=== PATIENT | male | born 1945 | race Caucasian/White ===

== ENCOUNTER 2025-02-22 05:35 | Observation (INO) ==
--- NOTE | 2025-02-22 06:03 | DR.DIZZY ---
HPI <Brenda Parish - Last Filed: 02/28/25 22:12> Time seen Time Seen by Provider: 02/22/25 06:03 HPI Comment HPI Comment: He's brought in by his daughter who found him in the floor this morning. She says she's having a harder and harder time taking care of him and it was very difficult to get him off the floor. He has not had c/o much but his appetite is worsening over the past few weeks. He has dizziness intermittently per the daughter; he tells me that he feels fine and denies c/o cp, sob, abd pain, n/v/d. He has chronic swelling in his legs which is essentially unchanged. Daughter would like to discuss hospice. <Dejuan Justice - Last Filed: 02/22/25 09:13> Context Stroke Symptoms: None PMH <Brendajacob Lugo - Last Filed: 02/28/25 22:12> PMH Past Medical History: Anemia, CVA, Dementia, Diabetes, Hypertension, [place] and PUD Past Surgical History: Yes Surgical History: Angioplasty/Stents Family History Family Medical History: Diabetes Mellitus, Cancer, [place] and Hypertension Social History Do you use any recreational Drugs:: No ROS <Brenda Parish - Last Filed: 02/28/25 22:12> Review of Systems Constitutional: No Symptoms Reported Eyes: No Symptoms Reported ENTM: No Symptoms Reported Respiratoy: No Symptoms Reported Cardiovascular: No Symptoms Reported Gastrointestinal/Abdominal: No Symptoms Reported Genitourinary: No Symptoms Reported Neurological: See HPI and Weakness; negative Seizure Musculoskeletal: No Symptoms Reported Integumentary: No Symptoms Reported Hematologic/Lymphatic: No Symptoms Reported Endocrine: No Symptoms Reported Psychiatric: negative Hallucinations PE <Brenda Lugo - Last Filed: 02/28/25 22:12> Vital Signs Vitals: Vital Signs Temperature 97.6 F Pulse Rate 84 Pulse Rate 84 Pulse Rate 84 Pulse Rate 90 Pulse Rate 85 Pulse Rate 86 Pulse Rate 81 Pulse Rate 80 Pulse Rate 81 Pulse Rate 85 Pulse Rate 89 Pulse Rate 88 Pulse Rate 83 Pulse Rate 83 Pulse Rate 86 Pulse Rate 90 Pulse Rate 87 Pulse Rate 94 Respiratory Rate 19 Blood Pressure 182/89 Blood Pressure 180/88 Blood Pressure 171/85 Blood Pressure 185/85 Blood Pressure 161/71 Blood Pressure 158/73 Blood Pressure 150/70 Blood Pressure 168/83 Blood Pressure 175/87 Blood Pressure 138/71 Blood Pressure 151/72 Blood Pressure 151/72 Blood Pressure 151/72 Blood Pressure 160/84 Blood Pressure 160/84 Blood Pressure 165/79 Blood Pressure 165/79 Blood Pressure 165/79 Blood Pressure 165/79 Blood Pressure 165/79 Blood Pressure 165/79 Blood Pressure 167/85 Blood Pressure 172/90 O2 Sat by Pulse Oximetry 100 O2 Sat by Pulse Oximetry 100 O2 Sat by Pulse Oximetry 99 O2 Sat by Pulse Oximetry 85 O2 Sat by Pulse Oximetry 98 O2 Sat by Pulse Oximetry 99 O2 Sat by Pulse Oximetry 99 O2 Sat by Pulse Oximetry 100 O2 Sat by Pulse Oximetry 100 O2 Sat by Pulse Oximetry 100 O2 Sat by Pulse Oximetry 100 O2 Sat by Pulse Oximetry 100 O2 Sat by Pulse Oximetry 99 O2 Sat by Pulse Oximetry 99 O2 Sat by Pulse Oximetry 100 O2 Sat by Pulse Oximetry 100 O2 Sat by Pulse Oximetry 100 O2 Sat by Pulse Oximetry 97 General Limitations: No Limitations General Appearance: Alert and In No Apparent Distress Head Head Exam: Normal Inspection Eyes Eye exam: Normal Appearance ENT ENT Exam: Normal Exam, Normal Oropharynx and Normal External Ear Exam Neck Neck Exam: Normal Inspection and Full ROM Chest Chest Inspection: Normal Inspection Respiratory Respiratory Exam: Normal Lung Sounds Bilat Cardiovascular Cardiovascular Exam: Regular Rate and Normal Rhythm Abdominal Exam Abdominal Exam: Normal Inspection, Normal Bowel Sounds and Soft Rectal Rectal Exam: Deferred Extremeties Extremities Exam: Edema (1-2+) Back Back Exam: Normal Inspection and Full ROM Neurologic Neurological Exam: Alert and Oriented X3 Psychiatric Psychiatric Exam: Normal Affect and Normal Mood Skin Skin Exam: Warm, Dry, Intact and Normal Color <Dejuan Justice - Last Filed: 02/22/25 09:13> Vital Signs Vitals: Vital Signs Temperature 97.6 F Pulse Rate 84 Pulse Rate 84 Pulse Rate 84 Pulse Rate 90 Pulse Rate 85 Pulse Rate 86 Pulse Rate 81 Pulse Rate 80 Pulse Rate 81 Pulse Rate 85 Pulse Rate 89 Pulse Rate 88 Pulse Rate 83 Pulse Rate 83 Pulse Rate 86 Pulse Rate 90 Pulse Rate 87 Pulse Rate 94 Respiratory Rate 19 Blood Pressure 182/89 Blood Pressure 180/88 Blood Pressure 171/85 Blood Pressure 185/85 Blood Pressure 161/71 Blood Pressure 158/73 Blood Pressure 150/70 Blood Pressure 168/83 Blood Pressure 175/87 Blood Pressure 138/71 Blood Pressure 151/72 Blood Pressure 151/72 Blood Pressure 151/72 Blood Pressure 160/84 Blood Pressure 160/84 Blood Pressure 165/79 Blood Pressure 165/79 Blood Pressure 165/79 Blood Pressure 165/79 Blood Pressure 165/79 Blood Pressure 165/79 Blood Pressure 167/85 Blood Pressure 172/90 O2 Sat by Pulse Oximetry 100 O2 Sat by Pulse Oximetry 100 O2 Sat by Pulse Oximetry 99 O2 Sat by Pulse Oximetry 85 O2 Sat by Pulse Oximetry 98 O2 Sat by Pulse Oximetry 99 O2 Sat by Pulse Oximetry 99 O2 Sat by Pulse Oximetry 100 O2 Sat by Pulse Oximetry 100 O2 Sat by Pulse Oximetry 100 O2 Sat by Pulse Oximetry 100 O2 Sat by Pulse Oximetry 100 O2 Sat by Pulse Oximetry 99 O2 Sat by Pulse Oximetry 99 O2 Sat by Pulse Oximetry 100 O2 Sat by Pulse Oximetry 100 O2 Sat by Pulse Oximetry 100 O2 Sat by Pulse Oximetry 97 COURSE <Brenda Lugo - Last Filed: 02/28/25 22:12> Treatment Treatment: 80 y/o with dementia and recurrent falls comes in this morning w/same complaint; labs are benign as is cxr; ct brain is pending; daughter has reached the point where she does not think she can continue to care for him and is considering hospice; care to Dr Zaidi at 0800. ROR <Brenda Lugo - Last Filed: 02/28/25 22:12> Labs Reviewed Laboratory Results Reviewed?: Yes 02/24/25 04:54 02/24/25 04:54 Laboratory: WBC 10.6 X10^3/uL (3.6-10.0) H 02/22/25 06:07 RBC 4.15 X10^6/uL (4.7-6.0) L 02/22/25 06:07 Hgb 12.6 g/dL (13.5-18.0) L 02/22/25 06:07 Hct 37.4 % (42.0-54.0) L 02/22/25 06:07 MCV 90.0 fL (80.0-100.0) 02/22/25 06:07 MCH 30.4 pg (27.0-34.0) 02/22/25 06:07 MCHC 33.8 g/dL (33.0-35.0) 02/22/25 06:07 RDW 17.8 % (11.6-16.5) H 02/22/25 06:07 Plt Count 195 X10^3/uL (150.0-450.0) 02/22/25 06:07 MPV 9.4 fL (7.4-11.0) 02/22/25 06:07 Neut % (Auto) 87.0 % (42.0-75.0) H 02/22/25 06:07 Lymph % (Auto) 6.3 % (21.0-51.0) L 02/22/25 06:07 [place] % (Auto) 4.7 % (0.0-13.0) 02/22/25 06:07 Eos % (Auto) 0.7 % (0.9-2.9) L 02/22/25 06:07 Baso % (Auto) 1.3 % (0.2-1.0) H 02/22/25 06:07 Neut # (Auto) 9.2 x10^3/uL (2.2-4.8) H 02/22/25 06:07 Lymph # (Auto) 0.7 X10^3/uL (1.3-2.9) L 02/22/25 06:07 [place] # (Auto) 0.5 x10^3/uL (0.3-0.8) 02/22/25 06:07 Eos # (Auto) 0.1 x10^3/uL (0.0-0.2) 02/22/25 06:07 Baso # (Auto) 0.1 X10^3/uL (0.0-0.1) 02/22/25 06:07 Absolute Nucleated RBC 0.0 /100WBC 02/22/25 06:07 Sodium 139 mmol/L (136-145) 02/22/25 06:07 Corrected Sodium 140 mmol/L (136-145) 02/22/25 06:07 Potassium 3.7 mmol/L (3.5-5.1) 02/22/25 06:07 Chloride 102 mmol/L (98-107) 02/22/25 06:07 Carbon Dioxide 24.3 mmol/L (21-32) 02/22/25 06:07 BUN 40 mg/dL (7-18) H 02/22/25 06:07 Creatinine 2.26 mg/dL (0.70-1.30) H 02/22/25 06:07 Est GFR (MDRD) Af Amer 36 (>60) L 02/22/25 06:07 Est GFR (MDRD) Non-Af 30 (>60) L 02/22/25 06:07 Glucose 149 mg/dL (65-99) H 02/22/25 06:07 Calcium 9.6 mg/dL (8.5-10.1) 02/22/25 06:07 Corrected Calcium 11.0 mg/dL (8.5-10.1) H 02/22/25 06:07 Total Bilirubin 0.80 mg/dL (0.2-1.0) 02/22/25 06:07 AST 58 Units/L (15-37) H 02/22/25 06:07 ALT 40 Units/L (12-78) 02/22/25 06:07 Alkaline Phosphatase 73 Units/L (46-116) 02/22/25 06:07 Creatine Kinase 133 Units/L (39-308) 02/22/25 06:07 Troponin I High Sens 40.4 ng/L (4.0-60.0) 02/22/25 06:07 Total Protein 7.0 g/dL (6.4-8.2) 02/22/25 06:07 Albumin 2.3 g/dL (3.4-5.0) L 02/22/25 06:07 Globulin 4.7 g/dL (2.5-4.5) H 02/22/25 06:07 Albumin/Globulin Ratio 0.5 Ratio (1.1-2.1) L 02/22/25 06:07 Specimen Type Catherized urine 02/22/25 07:20 Urine Color Yellow (YELLOW) 02/22/25 07:20 Urine Appearance Cloudy (CLEAR) 02/22/25 07:20 Urine pH 5.0 (5.0 - 8.0) 02/22/25 07:20 Ur Specific [place] 1.020 (1.000-1.030) 02/22/25 07:20 Urine Protein 4+ (NEGATIVE) 02/22/25 07:20 Urine Glucose (UA) Negative (NEGATIVE) 02/22/25 07:20 Urine Ketones Negative (NEGATIVE) 02/22/25 07:20 Urine Blood 1+ (NEGATIVE) 02/22/25 07:20 Urine Nitrite Negative (NEGATIVE) 02/22/25 07:20 Urine Bilirubin Negative (NEGATIVE) 02/22/25 07:20 Urine Urobilinogen Normal (NORMAL) 02/22/25 07:20 Ur Leukocyte Esterase Negative (NEGATIVE) 02/22/25 07:20 <Dejuan Justice - Last Filed: 02/22/25 09:13> Labs Reviewed Laboratory: WBC 10.6 X10^3/uL (3.6-10.0) H 02/22/25 06:07 RBC 4.15 X10^6/uL (4.7-6.0) L 02/22/25 06:07 Hgb 12.6 g/dL (13.5-18.0) L 02/22/25 06:07 Hct 37.4 % (42.0-54.0) L 02/22/25 06:07 MCV 90.0 fL (80.0-100.0) 02/22/25 06:07 MCH 30.4 pg (27.0-34.0) 02/22/25 06:07 MCHC 33.8 g/dL (33.0-35.0) 02/22/25 06:07 RDW 17.8 % (11.6-16.5) H 02/22/25 06:07 Plt Count 195 X10^3/uL (150.0-450.0) 02/22/25 06:07 MPV 9.4 fL (7.4-11.0) 02/22/25 06:07 Neut % (Auto) 87.0 % (42.0-75.0) H 02/22/25 06:07 Lymph % (Auto) 6.3 % (21.0-51.0) L 02/22/25 06:07 [place] % (Auto) 4.7 % (0.0-13.0) 02/22/25 06:07 Eos % (Auto) 0.7 % (0.9-2.9) L 02/22/25 06:07 Baso % (Auto) 1.3 % (0.2-1.0) H 02/22/25 06:07 Neut # (Auto) 9.2 x10^3/uL (2.2-4.8) H 02/22/25 06:07 Lymph # (Auto) 0.7 X10^3/uL (1.3-2.9) L 02/22/25 06:07 [place] # (Auto) 0.5 x10^3/uL (0.3-0.8) 02/22/25 06:07 Eos # (Auto) 0.1 x10^3/uL (0.0-0.2) 02/22/25 06:07 Baso # (Auto) 0.1 X10^3/uL (0.0-0.1) 02/22/25 06:07 Absolute Nucleated RBC 0.0 /100WBC 02/22/25 06:07 Sodium 139 mmol/L (136-145) 02/22/25 06:07 Corrected Sodium 140 mmol/L (136-145) 02/22/25 06:07 Potassium 3.7 mmol/L (3.5-5.1) 02/22/25 06:07 Chloride 102 mmol/L (98-107) 02/22/25 06:07 Carbon Dioxide 24.3 mmol/L (21-32) 02/22/25 06:07 BUN 40 mg/dL (7-18) H 02/22/25 06:07 Creatinine 2.26 mg/dL (0.70-1.30) H 02/22/25 06:07 Est GFR (MDRD) Af Amer 36 (>60) L 02/22/25 06:07 Est GFR (MDRD) Non-Af 30 (>60) L 02/22/25 06:07 Glucose 149 mg/dL (65-99) H 02/22/25 06:07 Calcium 9.6 mg/dL (8.5-10.1) 02/22/25 06:07 Corrected Calcium 11.0 mg/dL (8.5-10.1) H 02/22/25 06:07 Total Bilirubin 0.80 mg/dL (0.2-1.0) 02/22/25 06:07 AST 58 Units/L (15-37) H 02/22/25 06:07 ALT 40 Units/L (12-78) 02/22/25 06:07 Alkaline Phosphatase 73 Units/L (46-116) 02/22/25 06:07 Creatine Kinase 133 Units/L (39-308) 02/22/25 06:07 Troponin I High Sens 40.4 ng/L (4.0-60.0) 02/22/25 06:07 Total Protein 7.0 g/dL (6.4-8.2) 02/22/25 06:07 Albumin 2.3 g/dL (3.4-5.0) L 02/22/25 06:07 Globulin 4.7 g/dL (2.5-4.5) H 02/22/25 06:07 Albumin/Globulin Ratio 0.5 Ratio (1.1-2.1) L 02/22/25 06:07 Specimen Type Catherized urine 02/22/25 07:20 Urine Color Yellow (YELLOW) 02/22/25 07:20 Urine Appearance Cloudy (CLEAR) 02/22/25 07:20 Urine pH 5.0 (5.0 - 8.0) 02/22/25 07:20 Ur Specific [place] 1.020 (1.000-1.030) 02/22/25 07:20 Urine Protein 4+ (NEGATIVE) 02/22/25 07:20 Urine Glucose (UA) Negative (NEGATIVE) 02/22/25 07:20 Urine Ketones Negative (NEGATIVE) 02/22/25 07:20 Urine Blood 1+ (NEGATIVE) 02/22/25 07:20 Urine Nitrite Negative (NEGATIVE) 02/22/25 07:20 Urine Bilirubin Negative (NEGATIVE) 02/22/25 07:20 Urine Urobilinogen Normal (NORMAL) 02/22/25 07:20 Ur Leukocyte Esterase Negative (NEGATIVE) 02/22/25 07:20 Opioid <Brenda Lugo - Last Filed: 02/28/25 22:12> Opioid Risk Tool Age (Azam box if 16-45): No History of Preadolescent Sexual Abuse: No Total: 0 Total Score Risk Category: Low Risk Copyright: Joseph WEI predicting aberrant behaviors <Dejuan Justice - Last Filed: 02/22/25 09:13> Opioid Risk Tool Total: 0 Total Score Risk Category: Low Risk Discharge Plan Diagnosis Discharge Problem: Adult failure to thrive, Weakness, Renal insufficiency Hypertension Qualifiers: Hypertension type: primary hypertension Qualified Code(s): I10 - Essential (primary) hypertension Discharge Plan Patient Disposition: ADMITTED INPATIENT Condition: Stable Orders to Discharge Patient Discharge Orders: Discharge (Routine); Ordered 02/24/25 Ordered By: Justin Collins ADDITIONAL NOTES <Dejuan Justice - Last Filed: 02/22/25 09:13> Additional Notes Additional Notes: Will admit to hospital for failure to thrive & weakness, to facilitate placement in long-term care facility.
--- NOTE | 2025-02-22 06:24 | EKG ---
Test Reason : weakness Blood Pressure : */* mmHG Vent. Rate : 86 BPM Atrial Rate : 74 BPM P-R Int : * ms QRS Dur : 88 ms QT Int : 402 ms P-R-T Axes : 2 -37 -31 degrees QTc Int : 481 ms Normal sinus rhythm Left axis deviation Low voltage QRS Lateral infarct , age undetermined Abnormal ECG When compared with ECG of 10-JAN-2024 13:18, Lateral infarct is now present ST now depressed in Inferior leads Nonspecific T wave abnormality now evident in Inferior leads Nonspecific T wave abnormality now evident in Anterior leads Confirmed by Soham Dillard MD ([id number]) on 02/22/2025 6:51:26 AM Referred By: Confirmed By: Soham Dillard MD
[2025-02-22 06:25] LABS: RED CELL DISTRIBUTION WIDTH 17.8 % (11.6-16.5)
[2025-02-22 06:30] LABS: MEAN PLATELET VOLUME 9.4 fL (7.4-11.0)
[2025-02-22 06:37] LABS: COR NA(FOR HYPERGLY) 140.0 mmol/L (136-145); CREATININE 2.26 mg/dL (0.70-1.30); eGFR NON BLACK RACES 30.0 (>60)
[2025-02-22 06:56] LABS: COR CA(FOR HYPOALB) 11.0 mg/dL (8.5-10.1)
[2025-02-22 07:31] LABS: BLOOD/HEMOGLOBIN,URINE 1+ (NEGATIVE); LEUKOCYTE ESTERASE ,URINE NEGATIVE (NEGATIVE); NITRITES,URINE NEGATIVE (NEGATIVE)
[2025-02-22 07:33] LABS: APPEARANCE,URINE CLOUDY (CLEAR)
--- NOTE | 2025-02-22 07:57 | RAD ---
EXAM: Portable chest HISTORY: Weakness COMPARISON: 01/10/20 24 FINDINGS: Patient is status post median sternotomy and CABG. Heart size is normal. Trina are normal. Aorta is calcified. Lungs are hypoinflated but free of acute alveolar infiltrates. No pleural effusion or pneumothorax identified. Linear density paralleling the left chest wall is a skin fold artifact. Linear density paralleling the right lower mediastinum is also likely a skin fold artifact. IMPRESSION: Lungs hypoinflated but free of acute infiltrates THIS IS AN ELECTRONICALLY VERIFIED FINAL REPORT 02/22/2025 7:54 AM - Electronically signed by Chris Keith MD
--- NOTE | 2025-02-22 08:27 | CT ---
EXAMINATION: BRAIN W/O CON HISTORY: fall, dementia; COMPARISON: None. TECHNIQUE: Kwadwo guous noncontrast axial CT images of the brain. Images reviewed in the axial imaging plane sagittal and coronal images.The above CT scan was done with automated exposure control and the mA and kV was adjusted to obtain quality images according to patient size. FINDINGS: No evidence of acute intracranial hemorrhage, mass effect, or midline shift. Moderate diffuse brain parenchyma atrophy. Generalized decreased density to the deep white matter adjacent to the lateral ventricles and centrum semiovale regions bilaterally without associated mass effect. Consider chronic ischemic white matter changes from small vessel disease or other cause of gliosis. Low-density foci within the basal ganglia bilaterally, body of the right caudate lobe most likely chronic nonhemorrhagic lacunar type infarcts. The ventricles are normal size and shape. Calvarium appears intact. IMPRESSION: Chronic appearing brain parenchymal changes as described above. Recommend further evaluation with an MRI of the brain if this is of continued clinical concern. THIS IS AN ELECTRONICALLY VERIFIED FINAL REPORT 02/22/2025 8:24 AM - Electronically signed by Gracie iWlson MD
[2025-02-22] MEDS ORDERED: ULTRAM PO PRN (09:58)
--- NOTE | 2025-02-22 10:14 | DR.H&P ---
H&P History & Physical for Day of: H&P Date: 02/22/25 Chief Complaint Chief Complaint: generalized weakness, failure to thrive History of Present Illness History of Present Illness: Patient is a 80yo male with a PMH of HTN, CAD, CKD, Dementia, CVA and HLD who presented to the ER after being found on the floor. Patient has not been able to take care of himself. His daughter was present in the ER and said that patient's dementia has been getting worse and she is not able to take care of him on her own. She would like to have them placed into a [facility] facility. In the ER, patient was covered in feces/urine. Labs did not show any pertinent abnormality. UA was negative. CT brain was negative for any acute changes. Chest x-ray did not show any infection. On exam, patient appears to be alert & oriented. Denies any complaints. No family present at bedside. He states he lives with his and is able to ambulate with a walker. He does not recall any recent falls. Labs/imaging reviewed: - Hemoglobin 12.6 WBC 10.6 creatinine 2.26 glucose 140 - UA negative - Chest x-ray no acute infiltrate - CT brain: No acute changes Plan: Admit to [facility]. Continue gentle hydration. Consult physical therapy. CM to work on placement. Resume home medications. Patient does have a pressure sore on the right hip area. Replace electrolytes as per protocol. Monitor a.m. labs and imaging. Past Medical History Past Medical History: Anemia, CVA, Dementia, Diabetes, Hypertension, [place] and PUD Past Surgical History Surgical History: Angioplasty/Stents Family History Family Medical History: Diabetes Mellitus, Cancer, [place] and Hypertension Social History Does patient currently use any type of tobacco product: Yes (Chew tobacco) Have you used tobacco products in the last 12 months: No Type of Tobacco Use: Smokeless How many years tobacco product used: 40 Does any household member use tobacco: No Alcohol Use: None Medications Home Medications: Home Medications Medication Instructions Recorded Confirmed Type fenofibrate nanocrystallized 145 145 mg PO QDAY 02/22/25 History mg tablet aspirin 81 mg capsule,delayed 81 mg PO DAILY 02/22/25 02/22/25 History release atorvastatin 40 mg tablet 40 mg PO QDAY 02/22/2502/22 History gabapentin 300 mg capsule 300 mg PO BID 02/22/2502/22 History metoprolol tartrate 25 mg tablet 25 mg PO TID 02/22/25 02/22/25 History omeprazole 20 mg capsule,delayed 20 mg PO QDAY 5 02/22/25 History release tamsulosin 0.4 mg capsule 0.4 mg PO DAILY 02/22/2505/11 History tramadol 50 mg tablet 50 mg PO Q6H PRN Pain 02/22/25 History Allergies Allergies Allergy/AdvReac Type Severity Reaction Status Date / Time levofloxacin (From [facility]) Allergy Verified 02/22/25 06:40 Penicillins Allergy Verified 02/22/25 06:40 Labs 02/22/25 06:07 02/22/25 06:07 Labs: Laboratory WBC 10.6 X10^3/uL (3.6-10.0) H 02/22/25 06:07 RBC 4.15 X10^6/uL (4.7-6.0) L 02/22/25 06:07 Hgb 12.6 g/dL (13.5-18.0) L 02/22/25 06:07 Hct 37.4 % (42.0-54.0) L 02/22/25 06:07 MCV 90.0 fL (80.0-100.0) 02/22/25 06:07 MCH 30.4 pg (27.0-34.0) 02/22/25 06:07 MCHC 33.8 g/dL (33.0-35.0) 02/22/25 06:07 RDW 17.8 % (11.6-16.5) H 02/22/25 06:07 Plt Count 195 X10^3/uL (150.0-450.0) 02/22/25 06:07 MPV 9.4 fL (7.4-11.0) 02/22/25 06:07 Neut % (Auto) 87.0 % (42.0-75.0) H 02/22/25 06:07 Lymph % (Auto) 6.3 % (21.0-51.0) L 02/22/25 06:07 [place] % (Auto) 4.7 % (0.0-13.0) 02/22/25 06:07 Eos % (Auto) 0.7 % (0.9-2.9) L 02/22/25 06:07 Baso % (Auto) 1.3 % (0.2-1.0) H 02/22/25 06:07 Neut # (Auto) 9.2 x10^3/uL (2.2-4.8) H 02/22/25 06:07 Lymph # (Auto) 0.7 X10^3/uL (1.3-2.9) L 02/22/25 06:07 [place] # (Auto) 0.5 x10^3/uL (0.3-0.8) 02/22/25 06:07 Eos # (Auto) 0.1 x10^3/uL (0.0-0.2) 02/22/25 06:07 Baso # (Auto) 0.1 X10^3/uL (0.0-0.1) 02/22/25 06:07 Absolute Nucleated RBC 0.0 /100WBC 02/22/25 06:07 Sodium 139 mmol/L (136-145) 02/22/25 06:07 Corrected Sodium 140 mmol/L (136-145) 02/22/25 06:07 Potassium 3.7 mmol/L (3.5-5.1) 02/22/25 06:07 Chloride 102 mmol/L (98-107) 02/22/25 06:07 Carbon Dioxide 24.3 mmol/L (21-32) 02/22/25 06:07 BUN 40 mg/dL (7-18) H 02/22/25 06:07 Creatinine 2.26 mg/dL (0.70-1.30) H 02/22/25 06:07 Est GFR (MDRD) Af Amer 36 (>60) L 02/22/25 06:07 Est GFR (MDRD) Non-Af 30 (>60) L 02/22/25 06:07 Glucose 149 mg/dL (65-99) H 02/22/25 06:07 Calcium 9.6 mg/dL (8.5-10.1) 02/22/25 06:07 Corrected Calcium 11.0 mg/dL (8.5-10.1) H 02/22/25 06:07 Total Bilirubin 0.80 mg/dL (0.2-1.0) 02/22/25 06:07 AST 58 Units/L (15-37) H 02/22/25 06:07 ALT 40 Units/L (12-78) 02/22/25 06:07 Alkaline Phosphatase 73 Units/L (46-116) 02/22/25 06:07 Creatine Kinase 133 Units/L (39-308) 02/22/25 06:07 Troponin I High Sens 40.4 ng/L (4.0-60.0) 02/22/25 06:07 Total Protein 7.0 g/dL (6.4-8.2) 02/22/25 06:07 Albumin 2.3 g/dL (3.4-5.0) L 02/22/25 06:07 Globulin 4.7 g/dL (2.5-4.5) H 02/22/25 06:07 Albumin/Globulin Ratio 0.5 Ratio (1.1-2.1) L 02/22/25 06:07 Specimen Type Catherized urine 02/22/25 07:20 Urine Color Yellow (YELLOW) 02/22/25 07:20 Urine Appearance Cloudy (CLEAR) 02/22/25 07:20 Urine pH 5.0 (5.0 - 8.0) 02/22/25 07:20 Ur Specific [place] 1.020 (1.000-1.030) 02/22/25 07:20 Urine Protein 4+ (NEGATIVE) 02/22/25 07:20 Urine Glucose (UA) Negative (NEGATIVE) 02/22/25 07:20 Urine Ketones Negative (NEGATIVE) 02/22/25 07:20 Urine Blood 1+ (NEGATIVE) 02/22/25 07:20 Urine Nitrite Negative (NEGATIVE) 02/22/25 07:20 Urine Bilirubin Negative (NEGATIVE) 02/22/25 07:20 Urine Urobilinogen Normal (NORMAL) 02/22/25 07:20 Ur Leukocyte Esterase Negative (NEGATIVE) 02/22/25 07:20 Review of Systems Constitutional: Weakness Eyes: No Symptoms Reported ENT: No Symptoms Reported Respiratory: No Symptoms Reported Cardiovascular: No Symptoms Reported Gastrointestinal: No Symptoms Reported Genitourinary: No Symptoms Reported Musculoskeletal: Other (generalized weakness ) Skin: Wound Neurological: No Symptoms Reported Physical Exam Vital Signs: Vital Signs Temperature 97.7 F Temperature 97.6 F Pulse Rate [Right Radial] 96 Pulse Rate 84 Pulse Rate 84 Pulse Rate 84 Pulse Rate 90 Pulse Rate 85 Pulse Rate 86 Pulse Rate 81 Pulse Rate 80 Pulse Rate 81 Pulse Rate 85 Pulse Rate 89 Pulse Rate 88 Pulse Rate 83 Pulse Rate 83 Pulse Rate 86 Pulse Rate 90 Pulse Rate 87 Pulse Rate 94 Respiratory Rate 19 Respiratory Rate 19 Blood Pressure [Right Arm] 162/83 Blood Pressure 182/89 Blood Pressure 180/88 Blood Pressure 171/85 Blood Pressure 185/85 Blood Pressure 161/71 Blood Pressure 158/73 Blood Pressure 150/70 Blood Pressure 168/83 Blood Pressure 175/87 Blood Pressure 138/71 Blood Pressure 151/72 Blood Pressure 151/72 Blood Pressure 151/72 Blood Pressure 160/84 Blood Pressure 160/84 Blood Pressure 165/79 Blood Pressure 165/79 Blood Pressure 165/79 Blood Pressure 165/79 Blood Pressure 165/79 Blood Pressure 165/79 Blood Pressure 167/85 Blood Pressure 172/90 O2 Sat by Pulse Oximetry 98 O2 Sat by Pulse Oximetry 100 O2 Sat by Pulse Oximetry 100 O2 Sat by Pulse Oximetry 99 O2 Sat by Pulse Oximetry 85 O2 Sat by Pulse Oximetry 98 O2 Sat by Pulse Oximetry 99 O2 Sat by Pulse Oximetry 99 O2 Sat by Pulse Oximetry 100 O2 Sat by Pulse Oximetry 100 O2 Sat by Pulse Oximetry 100 O2 Sat by Pulse Oximetry 100 O2 Sat by Pulse Oximetry 100 O2 Sat by Pulse Oximetry 99 O2 Sat by Pulse Oximetry 99 O2 Sat by Pulse Oximetry 100 O2 Sat by Pulse Oximetry 100 O2 Sat by Pulse Oximetry 100 O2 Sat by Pulse Oximetry 97 Oriented: Normal Throat: Dry Respiratory: Diminished Throughout Cardiovascular: Normal Auscultation: Bowel Sounds: Normal Palpation: Normal Tenderness: Normal Skin: Decreased Turgur and Wound (right hip area - pressure sore noted) Musculoskeletal: Normal Psychiatric: Normal Mood Description: Calm Affect: Normal Speech Pattern: Clear and Appropriate Assessment/Plan (1) Adult failure to thrive: Status: Acute (2) Renal insufficiency: Status: Acute (3) Hypertension: Qualifiers: Hypertension type: primary hypertension Qualified Code(s): I10 - Essential (primary) hypertension Status: Acute (4) Weakness: Status: Acute (5) Anemia: Qualifiers: Anemia type: unspecified type Qualified Code(s): D64.9 - Anemia, unspecified Status: Chronic Review H&P Reviewed: Yes Patient was examined?: Yes
[2025-02-22] MEDS: NS 1,000 ML IV 1,000 ML IV SCH (11:23)
[2025-02-22] MEDS ORDERED: LOPRESSOR TAB 25 MG ONE (11:58)
[2025-02-22] MEDS: LOPRESSOR TAB 25 MG PO SCH (12:00)
[2025-02-22 12:43] VITALS: BMI 24.3
[2025-02-22] MEDS: NovoLIN R (or HumuLIN R) SUBCUT PRN (20:53)
[2025-02-22] MEDS: NEURONTIN CAP 300 MG PO SCH (20:53)
[2025-02-23 06:11] LABS: MEAN PLATELET VOLUME 9.6 fL (7.4-11.0); RED CELL DISTRIBUTION WIDTH 18.4 % (11.6-16.5)
[2025-02-23 06:16] LABS: CHOL/HDL RATIO 3.3 (0.0-5.0); COR CA(FOR HYPOALB) 10.8 mg/dL (8.5-10.1); COR NA(FOR HYPERGLY) 144.0 mmol/L (136-145); CREATININE 2.03 mg/dL (0.70-1.30); eGFR NON BLACK RACES 34.0 (>60)
[2025-02-23] MEDS ORDERED: CONSULT PHARMACY - POTASSIUM & MAGNESIUM XX SCH (07:00)
[2025-02-23] MEDS: NS 1,000 ML IV 1,000 ML with MAGNESIUM SULFATE 50% INJ VIAL 2 G IV SCH (08:13)
[2025-02-23] MEDS: LIPITOR TAB 40 MG PO SCH (08:14)
[2025-02-23] MEDS: TRICOR TAB 145 MG PO SCH (08:14)
[2025-02-23] MEDS: K-DUR TAB 20 MEQ PO SCH (08:14)
[2025-02-23] MEDS: ASPIRIN EC 81 MG PO SCH (08:14)
[2025-02-23] MEDS: FLOMAX PO SCH (08:16)
[2025-02-23] MEDS: LOVENOX INJ 30 MG SYR SC SCH (09:42)
[2025-02-23] MEDS ORDERED: PHARMACY CONSULT XX SCH (10:00)
--- NOTE | 2025-02-23 10:32 | PCM.PROG ---
Progress Note Progress Note for Day of Date of Exam: 02/23/25 Subjective Subjective: Patient is a 80-year-old male admitted for adult failure to thrive and renal insufficiency. This morning he is resting in bed. No acute events overnight. He has been tolerating p.o. intake. He remains weak. Labs/imaging: WBC 9.7, hemoglobin 11.4, platelets 174, sodium 143, potassium 3.7, creatinine 2.03, glucose 133, CT of the brain negative, chest x-ray no acute cardiopulmonary findings, UA negative. Home medications have been restarted. PT ordered. Patient will need placement. Case management notified and is working on it. Otherwise continue with current treatment plan. Continue closely monitor and follow-up labs/imaging. Past Medical Family Social History Allergies: Allergies levofloxacin (From Levaquin) Allergy (Verified 02/22/25 06:40) Penicillins Allergy (Verified 02/22/25 06:40) Review of Systems ROS changes noted: see HPI Vital Signs and I&O's Vital Signs: Vital Signs Temperature 97.3 F Temperature 97.6 F Pulse Rate [Right Radial] 79 Pulse Rate [Right Radial] 86 Respiratory Rate 19 Respiratory Rate 19 Blood Pressure [Right Arm] 169/79 Blood Pressure [Right Arm] 150/86 O2 Sat by Pulse Oximetry 98 O2 Sat by Pulse Oximetry 95 Intake and Output: Intake & Output 02/20/25 02/21/25 02/22/25 02/23/25 23:59 23:59 23:59 23:59 Intake Total 862 / 862 602 / 602 Balance 862 / 862 602 / 602 Physical Exam Oriented: Normal Throat: Normal Respiratory: Normal Cardiovascular: Normal Auscultation: Bowel Sounds: Normal Tenderness: Normal Skin: Decreased Turgur and Wound (right hip area - pressure sore noted) Musculoskeletal: Normal Psychiatric: Normal Mood Description: Calm Affect: Normal Speech Pattern: Clear, Appropriate and Delayed Laboratory and Diagnostics 02/23/25 05:26 02/23/25 05:26 Labs: 02/22/25 11:15 Hip - Right Wound Gram Stain - Final Laboratory WBC 9.7 X10^3/uL (3.6-10.0) 02/23/25 05:26 RBC 3.71 X10^6/uL (4.7-6.0) L 02/23/25 05:26 Hgb 11.4 g/dL (13.5-18.0) L 02/23/25 05:26 Hct 33.5 % (42.0-54.0) L 02/23/25 05:26 MCV 90.4 fL (80.0-100.0) 02/23/25 05:26 MCH 30.6 pg (27.0-34.0) 02/23/25 05:26 MCHC 33.8 g/dL (33.0-35.0) 02/23/25 05:26 RDW 18.4 % (11.6-16.5) H 02/23/25 05:26 Plt Count 174 X10^3/uL (150.0-450.0) 02/23/25 05:26 MPV 9.6 fL (7.4-11.0) 02/23/25 05:26 Neut % (Auto) 79.3 % (42.0-75.0) H 02/23/25 05:26 Lymph % (Auto) 11.4 % (21.0-51.0) L 02/23/25 05:26 Bent % (Auto) 7.5 % (0.0-13.0) 02/23/25 05:26 Eos % (Auto) 1.5 % (0.9-2.9) 02/23/25 05:26 Baso % (Auto) 0.3 % (0.2-1.0) 02/23/25 05:26 Neut # (Auto) 7.7 x10^3/uL (2.2-4.8) H 02/23/25 05:26 Lymph # (Auto) 1.1 X10^3/uL (1.3-2.9) L 02/23/25 05:26 Bent # (Auto) 0.7 x10^3/uL (0.3-0.8) 02/23/25 05:26 Eos # (Auto) 0.1 x10^3/uL (0.0-0.2) 02/23/25 05:26 Baso # (Auto) 0.0 X10^3/uL (0.0-0.1) 02/23/25 05:26 Absolute Nucleated RBC 0.0 /100WBC 02/23/25 05:26 Sodium 143 mmol/L (136-145) 02/23/25 05:26 Corrected Sodium 144 mmol/L (136-145) 02/23/25 05:26 Potassium 3.7 mmol/L (3.5-5.1) 02/23/25 05:26 Chloride 112 mmol/L (98-107) H 02/23/25 05:26 Carbon Dioxide 25.1 mmol/L (21-32) 02/23/25 05:26 BUN 32 mg/dL (7-18) H 02/23/25 05:26 Creatinine 2.03 mg/dL (0.70-1.30) H 02/23/25 05:26 Est GFR (MDRD) Af Amer 41 (>60) L 02/23/25 05:26 Est GFR (MDRD) Non-Af 34 (>60) L 02/23/25 05:26 Glucose 133 mg/dL (65-99) H 02/23/25 05:26 POC Glucose (mg/dL) 135 mg/dL (65-99) H 02/23/25 06:16 Calcium 9.0 mg/dL (8.5-10.1) 02/23/25 05:26 Corrected Calcium 10.8 mg/dL (8.5-10.1) H 02/23/25 05:26 Magnesium 1.6 mg/dL (2.0-2.9) L 02/23/25 05:26 Total Bilirubin 0.60 mg/dL (0.2-1.0) 02/23/25 05:26 AST 41 Units/L (15-37) H 02/23/25 05:26 ALT 29 Units/L (12-78) 02/23/25 05:26 Alkaline Phosphatase 65 Units/L (46-116) 02/23/25 05:26 Creatine Kinase 32 Units/L (39-308) L 02/23/25 05:26 Troponin I High Sens 40.4 ng/L (4.0-60.0) 02/22/25 06:07 Total Protein 6.4 g/dL (6.4-8.2) 02/23/25 05:26 Albumin 1.7 g/dL (3.4-5.0) L 02/23/25 05:26 Globulin 4.7 g/dL (2.5-4.5) H 02/23/25 05:26 Albumin/Globulin Ratio 0.4 Ratio (1.1-2.1) L 02/23/25 05:26 Triglycerides 94 mg/dL (0-150) 02/23/25 05:26 Cholesterol 95 mg/dL (0-200) 02/23/25 05:26 LDL Cholesterol, Calc 47 mg/dL (0-100) 02/23/25 05:26 HDL Cholesterol 29 mg/dL (40-60) L 02/23/25 05:26 Cholesterol/HDL Ratio 3.3 (0.0-5.0) 02/23/25 05:26 Specimen Type Catherized urine 02/22/25 07:20 Urine Color Yellow (YELLOW) 02/22/25 07:20 Urine Appearance Cloudy (CLEAR) 02/22/25 07:20 Urine pH 5.0 (5.0 - 8.0) 02/22/25 07:20 Ur Specific Erin 1.020 (1.000-1.030) 02/22/25 07:20 Urine Protein 4+ (NEGATIVE) 02/22/25 07:20 Urine Glucose (UA) Negative (NEGATIVE) 02/22/25 07:20 Urine Ketones Negative (NEGATIVE) 02/22/25 07:20 Urine Blood 1+ (NEGATIVE) 02/22/25 07:20 Urine Nitrite Negative (NEGATIVE) 02/22/25 07:20 Urine Bilirubin Negative (NEGATIVE) 02/22/25 07:20 Urine Urobilinogen Normal (NORMAL) 02/22/25 07:20 Ur Leukocyte Esterase Negative (NEGATIVE) 02/22/25 07:20 Plan (1) Adult failure to thrive: Status: Acute (2) Renal insufficiency: Status: Acute (3) Hypertension: Status: Acute Qualifiers: Hypertension type: primary hypertension Qualified Code(s): I10 - Essential (primary) hypertension (4) Weakness: Status: Acute (5) Anemia: Status: Chronic Qualifiers: Anemia type: unspecified type Qualified Code(s): D64.9 - Anemia, unspecified
[2025-02-23] MEDS: ROBITUSSIN DM PO PRN (16:00)
[2025-02-23] MEDS: SNACK - Diabetic Appropriate PO SCH (20:14)
[2025-02-24 05:18] LABS: MEAN PLATELET VOLUME 9.5 fL (7.4-11.0); RED CELL DISTRIBUTION WIDTH 18.4 % (11.6-16.5)
[2025-02-24 05:31] LABS: COR CA(FOR HYPOALB) 10.5 mg/dL (8.5-10.1); COR NA(FOR HYPERGLY) 144.0 mmol/L (136-145); CREATININE 2.0 mg/dL (0.70-1.30); eGFR NON BLACK RACES 34.0 (>60)
--- NOTE | 2025-02-24 06:03 | RAD ---
EXAM: CHEST, 1 VIEW HISTORY: WEAKNESS; ANEMIA, CVA, DM, GERD, HTN, [place], DEMENTIA, AFIB SX: ANGIO/STENTS, CABG/VALVE SURG, ORTHO, BACK COMPARISON: 02/22/2025 TECHNIQUE: AP portable FINDINGS: Median sternotomy wires and prior CABG. Stable cardiac silhouette. Low lung volumes. Increased patchy airspace opacities. No large pleural effusion or visible pneumothorax. IMPRESSION: Low lung volumes with increased patchy infiltrates or edema. THIS IS AN ELECTRONICALLY VERIFIED FINAL REPORT 02/24/2025 6:00 AM - Electronically signed by Bhavin Rankin MD
[2025-02-24] MEDS ORDERED: CONSULT PHARMACY - POTASSIUM & MAGNESIUM XX SCH (08:00)
[2025-02-24 08:10] VITALS: BP 155/79; PULSE 68; RESP 18; TEMP 98.5; O2SAT 96
[2025-02-24] MEDS: TRICOR TAB 48 MG PO SCH (09:01)
[2025-02-24] MEDS: KLOR-CON 10 MEQ TAB PO NR (09:02)
[2025-02-24] MEDS: LASIX PO SCH (10:53)
== END 2025-02-24 11:35 ==
LOC: MED/SURG 05:35 → ER 05:35 → MED/SURG 09:43
PROVIDERS: ADMIT Internal Medicine; ATTEND Internal Medicine
DX: N18.9 Chronic kidney disease, unspecified; E11.22 Type 2 diabetes mellitus with diabetic chronic kidney disease; Z65.8 Other specified problems related to psychosocial circumstances; I12.9 Hypertensive chronic kidney disease with stage 1 through stage 4 chronic kidney disease, or unspecified chronic kidney disease; N28.89 Other specified disorders of kidney and ureter; Z95.2 Presence of prosthetic heart valve; R53.1 Weakness; Z74.1 Need for assistance with personal care; R29.6 Repeated falls; W18.39XA Other fall on same level, initial encounter; Z86.73 Personal history of transient ischemic attack (TIA), and cerebral infarction without residual deficits; R62.7 Adult failure to thrive; R94.31 Abnormal electrocardiogram [ECG] [EKG]; R42 Dizziness and giddiness; I25.810 Atherosclerosis of coronary artery bypass graft(s) without angina pectoris; E83.42 Hypomagnesemia; K21.9 Gastro-esophageal reflux disease without esophagitis; L89.219 Pressure ulcer of right hip, unspecified stage; R26.89 Other abnormalities of gait and mobility; S51.812A Laceration without foreign body of left forearm, initial encounter; Z58.89 Other problems related to physical environment; Z66 Do not resuscitate; D64.89 Other specified anemias; E11.65 Type 2 diabetes mellitus with hyperglycemia; F03.90 Unspecified dementia, unspecified severity, without behavioral disturbance, psychotic disturbance, mood disturbance, and anxiety

== ENCOUNTER 2025-03-14 15:40 | Observation (INO) ==
[2025-03-14 16:33] LABS: MEAN PLATELET VOLUME 9.2 fL (7.4-11.0); RED CELL DISTRIBUTION WIDTH 17.9 % (11.6-16.5)
[2025-03-14 16:42] LABS: COR CA(FOR HYPOALB) 10.6 mg/dL (8.5-10.1); COR NA(FOR HYPERGLY) 135.0 mmol/L (136-145); CREATININE 2.33 mg/dL (0.70-1.30); eGFR NON BLACK RACES 29.0 (>60)
[2025-03-14 17:33] VITALS: BMI 28.1
[2025-03-14] MEDS: ALBUMIN HUMAN 25%- 100 ML 100 ML IV SCH (20:38)
[2025-03-15] MEDS ORDERED: ULTRAM PO PRN (02:06)
[2025-03-15] MEDS: LOPRESSOR TAB 25 MG PO SCH (05:05)
[2025-03-15 05:53] LABS: MEAN PLATELET VOLUME 9.6 fL (7.4-11.0); RED CELL DISTRIBUTION WIDTH 17.1 % (11.6-16.5)
[2025-03-15 06:03] LABS: COR CA(FOR HYPOALB) 10.2 mg/dL (8.5-10.1); CREATININE 2.08 mg/dL (0.70-1.30); eGFR NON BLACK RACES 33 (>60)
--- NOTE | 2025-03-15 07:28 | RAD ---
EXAMINATION: CHEST, 1 VIEW HISTORY: congestion; . COMPARISON STUDY: Chest x-ray 03/14/2025 TECHNIQUE: One view FINDINGS: Poor inspiration. Median sternotomy. Borderline heart size. No acute alveolar infiltrates. Interstitial infiltrates in the lung. No pneumothorax. Hilar and mediastinal structures and bony structures are unchanged. IMPRESSION: No acute alveolar infiltrates. Nonspecific interstitial infiltrates in the lungs. Correlate clinically THIS IS AN ELECTRONICALLY VERIFIED FINAL REPORT 03/15/2025 7:25 AM - Electronically signed by Smith Ramirez MD
[2025-03-15] MEDS: LASIX PO SCH (09:52)
[2025-03-15] MEDS: ASPIRIN EC 81 MG PO SCH (09:52)
[2025-03-15] MEDS: NEURONTIN CAP 300 MG PO SCH (09:52)
[2025-03-15] MEDS: ALDACTONE TAB 25 MG PO SCH (09:52)
[2025-03-15] MEDS: TRICOR TAB 48 MG PO SCH (09:52)
[2025-03-15] MEDS ORDERED: PHARMACY CONSULT LTC MEDICATIONS XX SCH (11:00)
[2025-03-15] MEDS ORDERED: PHARMACY CONSULT XX SCH (11:00)
[2025-03-15] MEDS: SNACK - Diabetic Appropriate PO SCH (20:09)
[2025-03-15] MEDS: FLOMAX PO SCH (21:08)
[2025-03-15] MEDS: LIPITOR TAB 40 MG PO SCH (21:08)
[2025-03-15] MEDS: NovoLIN R (or HumuLIN R) SUBCUT PRN (21:08)
[2025-03-16 05:56] LABS: MEAN PLATELET VOLUME 9.6 fL (7.4-11.0); RED CELL DISTRIBUTION WIDTH 17.2 % (11.6-16.5)
[2025-03-16 06:05] LABS: COR CA(FOR HYPOALB) 10.5 mg/dL (8.5-10.1); CREATININE 1.90 mg/dL (0.70-1.30); eGFR NON BLACK RACES 36 (>60)
--- NOTE | 2025-03-16 07:41 | DR.PROGNOT ---
HOSPITAL PROGRESS NOTE Progress Note for Day of: Progress Note Date: 03/15/25 Chief Complaint Chief Complaint: Patient is status post paracentesis and drainage of about 10 L of ascites. The paracentesis catheter came out last night. Patient is more comfortable, no abdominal pain and less shortness of breath. BUN still elevated at 37 and creatinine 2.08. Cytology from the ascites is still pending. Temperature 97 and vital signs are stable. Abdomen is soft still with the significant amount of ascites but there is no need to drain more. Will obtain medical consultation. Past Medical Family Social History Allergies: Allergies levofloxacin (From Levaquin) Allergy (Verified 03/14/25 15:43) Penicillins Allergy (Verified 03/14/25 15:43) Vital Signs Vital Signs: Vital Signs Temperature 98.0 F Temperature 98.0 F Pulse Rate [Right Brachial] 67 Pulse Rate [Right Brachial] 68 Respiratory Rate 18 Respiratory Rate 22 Blood Pressure [Right Arm] 152/72 Blood Pressure [Right Arm] 160/74 O2 Sat by Pulse Oximetry 94 O2 Sat by Pulse Oximetry 96 Physical Exam Oriented: Normal Eyes: Normal Ear: Normal Respiratory: Normal Cardiovascular: Normal GI:Auscultation: Normal GI: Tenderness: Normal Speech Pattern: Clear, Appropriate and Delayed Laboratory and Diagnostics 03/16/25 05:22 03/16/25 05:22 Labs: 03/14/25 17:35 Peritoneal Fluid - Preliminary Laboratory WBC 7.5 X10^3/uL (3.6-10.0) 03/16/25 05:22 RBC 3.68 X10^6/uL (4.7-6.0) L 03/16/25 05:22 Hgb 11.2 g/dL (13.5-18.0) L 03/16/25 05:22 Hct 33.3 % (42.0-54.0) L 03/16/25 05:22 MCV 90.4 fL (80.0-100.0) 03/16/25 05:22 MCH 30.4 pg (27.0-34.0) 03/16/25 05:22 MCHC 33.6 g/dL (33.0-35.0) 03/16/25 05:22 RDW 17.2 % (11.6-16.5) H 03/16/25 05:22 Plt Count 226 X10^3/uL (150.0-450.0) 03/16/25 05:22 MPV 9.6 fL (7.4-11.0) 03/16/25 05:22 Neut % (Auto) 63.9 % (42.0-75.0) 03/16/25 05:22 Lymph % (Auto) 17.6 % (21.0-51.0) L 03/16/25 05:22 [place] % (Auto) 11.3 % (0.0-13.0) 03/16/25 05:22 Eos % (Auto) 6.4 % (0.9-2.9) H 03/16/25 05:22 Baso % (Auto) 0.8 % (0.2-1.0) 03/16/25 05:22 Neut # (Auto) 4.8 x10^3/uL (2.2-4.8) 03/16/25 05:22 Lymph # (Auto) 1.3 X10^3/uL (1.3-2.9) 03/16/25 05:22 [place] # (Auto) 0.8 x10^3/uL (0.3-0.8) 03/16/25 05:22 Eos # (Auto) 0.5 x10^3/uL (0.0-0.2) H 03/16/25 05:22 Baso # (Auto) 0.1 X10^3/uL (0.0-0.1) 03/16/25 05:22 Absolute Nucleated RBC 0.0 /100WBC 03/16/25 05:22 Sodium 133 mmol/L (136-145) L 03/16/25 05:22 Corrected Sodium TNP 03/16/25 05:22 Potassium 5.3 mmol/L (3.5-5.1) H 03/16/25 05:22 Chloride 101 mmol/L (98-107) 03/16/25 05:22 Carbon Dioxide 32.7 mmol/L (21-32) H 03/16/25 05:22 BUN 31 mg/dL (7-18) H 03/16/25 05:22 Creatinine 1.90 mg/dL (0.70-1.30) H 03/16/25 05:22 Est GFR (MDRD) Af Amer 44 (>60) L 03/16/25 05:22 Est GFR (MDRD) Non-Af 36 (>60) L 03/16/25 05:22 Glucose 101 mg/dL (65-99) H 03/16/25 05:22 POC Glucose (mg/dL) 84 mg/dL (65-99) 03/16/25 05:29 Calcium 9.1 mg/dL (8.5-10.1) 03/16/25 05:22 Corrected Calcium 10.5 mg/dL (8.5-10.1) H 03/16/25 05:22 Total Bilirubin 0.70 mg/dL (0.2-1.0) 03/16/25 05:22 AST 97 Units/L (15-37) H 03/16/25 05:22 ALT 62 Units/L (12-78) 03/16/25 05:22 Alkaline Phosphatase 74 Units/L (46-116) 03/16/25 05:22 Total Protein 6.3 g/dL (6.4-8.2) L 03/16/25 05:22 Albumin 2.3 g/dL (3.4-5.0) L 03/16/25 05:22 Globulin 4.0 g/dL (2.5-4.5) 03/16/25 05:22 Albumin/Globulin Ratio 0.6 Ratio (1.1-2.1) L 03/16/25 05:22 Fluid pH 8.0 03/14/25 17:35 Fluid Glucose 163 03/14/25 17:35 Cytology Cancelled 03/14/25 19:20 Assessment and Plan 1: Liver cirrhosis with tense ascites, status post paracentesis. 2: Dehydration with a chronic kidney disease. Same IV fluid, medical consultation.
--- NOTE | 2025-03-16 16:47 | DR.PROGNOT ---
HOSPITAL PROGRESS NOTE Progress Note for Day of: Progress Note Date: 03/16/25 Chief Complaint Chief Complaint: No significant changes in the patient condition. Feeling better after paracentesis with soft abdomen, nontender. White count 7.5, hemoglobin 11.2, platelet count 226, PT 13.6 and INR 1.06, sodium 131, potassium 5.3, BUN 31, creatinine 1.9, blood sugar 171, albumin 2.3, calcium 10.5, normal bilirubin and liver function test, AST 97, cytology from the ascites is pending and chest x-ray was reported as normal. Renal function seems to be slowly improving with hydration. Oral intake is fair. Past Medical Family Social History Past Med/Fam/Surg Hx: No changes since H&P Allergies: Allergies levofloxacin (From Levaquin) Allergy (Verified 03/14/25 15:43) Penicillins Allergy (Verified 03/14/25 15:43) Review Of Systems ROS: No change since H&P Vital Signs Vital Signs: Vital Signs Temperature 98.4 F Temperature 98.2 F Pulse Rate [Right Brachial] 90 Pulse Rate [Right Brachial] 80 Respiratory Rate 19 Respiratory Rate 18 Blood Pressure [Right Arm] 153/82 Blood Pressure [Right Arm] 159/86 O2 Sat by Pulse Oximetry 95 O2 Sat by Pulse Oximetry 99 Physical Exam Oriented: Not Oriented (None oriented to place and time.) Eyes: Normal Ear: Normal Respiratory: Normal Cardiovascular: Normal GI:Palpation: Other (Moderate ascites and nontender abdomen.) GI: Tenderness: Normal Speech Pattern: Clear, Appropriate and Delayed Laboratory and Diagnostics 03/16/25 05:22 03/16/25 05:22 Labs: 03/14/25 17:35 Peritoneal Fluid - Preliminary Laboratory WBC 7.5 X10^3/uL (3.6-10.0) 03/16/25 05:22 RBC 3.68 X10^6/uL (4.7-6.0) L 03/16/25 05:22 Hgb 11.2 g/dL (13.5-18.0) L 03/16/25 05:22 Hct 33.3 % (42.0-54.0) L 03/16/25 05:22 MCV 90.4 fL (80.0-100.0) 03/16/25 05:22 MCH 30.4 pg (27.0-34.0) 03/16/25 05:22 MCHC 33.6 g/dL (33.0-35.0) 03/16/25 05:22 RDW 17.2 % (11.6-16.5) H 03/16/25 05:22 Plt Count 226 X10^3/uL (150.0-450.0) 03/16/25 05:22 MPV 9.6 fL (7.4-11.0) 03/16/25 05:22 Neut % (Auto) 63.9 % (42.0-75.0) 03/16/25 05:22 Lymph % (Auto) 17.6 % (21.0-51.0) L 03/16/25 05:22 [place] % (Auto) 11.3 % (0.0-13.0) 03/16/25 05:22 Eos % (Auto) 6.4 % (0.9-2.9) H 03/16/25 05:22 Baso % (Auto) 0.8 % (0.2-1.0) 03/16/25 05:22 Neut # (Auto) 4.8 x10^3/uL (2.2-4.8) 03/16/25 05:22 Lymph # (Auto) 1.3 X10^3/uL (1.3-2.9) 03/16/25 05:22 [place] # (Auto) 0.8 x10^3/uL (0.3-0.8) 03/16/25 05:22 Eos # (Auto) 0.5 x10^3/uL (0.0-0.2) H 03/16/25 05:22 Baso # (Auto) 0.1 X10^3/uL (0.0-0.1) 03/16/25 05:22 Absolute Nucleated RBC 0.0 /100WBC 03/16/25 05:22 Sodium 133 mmol/L (136-145) L 03/16/25 05:22 Corrected Sodium TNP 03/16/25 05:22 Potassium 5.3 mmol/L (3.5-5.1) H 03/16/25 05:22 Chloride 101 mmol/L (98-107) 03/16/25 05:22 Carbon Dioxide 32.7 mmol/L (21-32) H 03/16/25 05:22 BUN 31 mg/dL (7-18) H 03/16/25 05:22 Creatinine 1.90 mg/dL (0.70-1.30) H 03/16/25 05:22 Est GFR (MDRD) Af Amer 44 (>60) L 03/16/25 05:22 Est GFR (MDRD) Non-Af 36 (>60) L 03/16/25 05:22 Glucose 101 mg/dL (65-99) H 03/16/25 05:22 POC Glucose (mg/dL) 135 mg/dL (65-99) H 03/16/25 16:36 Calcium 9.1 mg/dL (8.5-10.1) 03/16/25 05:22 Corrected Calcium 10.5 mg/dL (8.5-10.1) H 03/16/25 05:22 Total Bilirubin 0.70 mg/dL (0.2-1.0) 03/16/25 05:22 AST 97 Units/L (15-37) H 03/16/25 05:22 ALT 62 Units/L (12-78) 03/16/25 05:22 Alkaline Phosphatase 74 Units/L (46-116) 03/16/25 05:22 Total Protein 6.3 g/dL (6.4-8.2) L 03/16/25 05:22 Albumin 2.3 g/dL (3.4-5.0) L 03/16/25 05:22 Globulin 4.0 g/dL (2.5-4.5) 03/16/25 05:22 Albumin/Globulin Ratio 0.6 Ratio (1.1-2.1) L 03/16/25 05:22 Carcinoembryonic Ag <2.0 ng/mL 03/14/25 16:22 Fluid pH 8.0 03/14/25 17:35 Fluid Glucose 163 03/14/25 17:35 Cytology Cancelled 03/14/25 19:20 Assessment and Plan 1: Liver cirrhosis with tense ascites, status post paracentesis. 2: Dehydration with a chronic kidney disease. Same IV fluid . Possible discharge in a.m.
[2025-03-17 04:29] VITALS: O2SAT 95
[2025-03-17 06:35] LABS: COR CA(FOR HYPOALB) 10.5 mg/dL (8.5-10.1); CREATININE 2.00 mg/dL (0.70-1.30); eGFR NON BLACK RACES 34 (>60)
[2025-03-17 06:42] LABS: MEAN PLATELET VOLUME 9.4 fL (7.4-11.0); RED CELL DISTRIBUTION WIDTH 17.0 % (11.6-16.5)
[2025-03-17 07:28] VITALS: BP 156/69; PULSE 62; RESP 19; TEMP 97.5
[2025-03-17] MEDS: KAYEXALATE SUSP PO NR (10:55)
--- NOTE | 2025-03-18 12:35 | DR.CONSULT ---
CONSULT Consultation for Day of: Date: 03/16/25 Chief Complaint Chief Complaint: ascites Allergies Allergies Allergy/AdvReac Type Severity Reaction Status Date / Time levofloxacin (From Levaquin) Allergy Verified 03/14/25 15:43 Penicillins Allergy Verified 03/14/25 15:43 History of Present Illness History of Present Illness: Patient is 80-year-old male with a medical history of cirrhosis and admitted for ascites. He is status post paracentesis. Medicine consulted for electrolyte abnormality. Labs/imaging: WBC 7.5, hemoglobin 11.2, platelets 226, sodium 133, potassium 5.3, creatinine 1.90, glucose 101. Patient is currently receiving albumin. Ascites fluid cytology pending. At this time we will hold spironolactone and monitor potassium level. Otherwise continue with current treatment plan.Follow-up labs in the morning. Past Medical History Past Medical History: Anemia, CHF, COPD, CVA, Dementia, Diabetes, Gout, Hypertension, [place], PUD and Renal Disease Past Surgical History Surgical History: Angioplasty/Stents, CABG/Valve Surgery and Ortho Surgery Family History Family Medical History: Diabetes Mellitus, Cancer, [place] and Hypertension Social History Does patient currently use any type of tobacco product: No Type of Tobacco Use: None Does any household member use tobacco: No Alcohol Use: None Drug Use: None Medications Home Medications: levofloxacin (From Levaquin) Allergy (Verified 03/14/25 15:43) Penicillins Allergy (Verified 03/14/25 15:43) Review of Systems Constitutional: No Symptoms Reported Eyes: No Symptoms Reported ENT: No Symptoms Reported Respiratory: No Symptoms Reported Cardiovascular: No Symptoms Reported Gastrointestinal: Other (abdominal distention) Genitourinary: No Symptoms Reported Musculoskeletal: No Symptoms Reported Skin: No Symptoms Reported Neurological: No Symptoms Reported Physical Exam Vital Signs: Vital Signs Temperature 97.9 F Temperature 98.0 F Pulse Rate [Right Brachial] 58 Pulse Rate [Right Brachial] 67 Respiratory Rate 19 Respiratory Rate 18 Blood Pressure [Right Arm] 160/84 Blood Pressure [Right Arm] 152/72 O2 Sat by Pulse Oximetry 96 O2 Sat by Pulse Oximetry 94 Oriented: Normal Eyes: Normal Ear: Normal Nose: Normal Respiratory: Clear Throughout Cardiovascular: Normal : Normal Auscultation: Bowel Sounds: Normal Palpation: Normal Tenderness: Other (abdominal distention) Skin: Normal Musculoskeletal: Normal Psychiatric: Normal Speech Pattern: Clear Plan (1) Abdominal ascites: Status: Acute (2) Cirrhosis: Status: Acute (3) Renal insufficiency: Status: Acute
--- NOTE | 2025-03-18 12:39 | PCM.PROG ---
Progress Note Progress Note for Day of Date of Exam: 03/17/25 Subjective Subjective: Patient is 80-year-old male with a medical history of cirrhosis and admitted for ascites. He is status post paracentesis. Medicine consulted for electrolyte abnormality. Potassium this morning still mildly elevated. Will start patient on Lokelma which he can receive at [facility] and monitor daily labs through the weekend. Restart spironolactone on Thursday. Otherwise, he is stable to be discharged. Past Medical Family Social History Past Med/Fam/Surg Hx: No changes since H&P Allergies: Allergies levofloxacin (From Levaquin) Allergy (Verified 03/14/25 15:43) Penicillins Allergy (Verified 03/14/25 15:43) Review of Systems ROS changes noted: see HPI Vital Signs and I&O's Intake and Output: Intake & Output 03/15/25 03/16/25 03/17/25 03/18/25 23:59 23:59 23:59 23:59 Intake Total 770 / 770 1488 / 1488 222 / 222 Output Total 1999 Balance -1230 / -1230 1488 / 1488 222 / 222 Physical Exam Oriented: Normal Eyes: Normal Ear: Normal Nose: Normal Respiratory: Normal Cardiovascular: Normal : Normal Auscultation: Bowel Sounds: Normal Tenderness: Other (abdominal distention) Skin: Normal Musculoskeletal: Normal Psychiatric: Normal Speech Pattern: Clear Laboratory and Diagnostics 03/17/25 05:26 03/17/25 06:26 Labs: 03/14/25 17:35 Peritoneal Fluid - Preliminary Laboratory WBC 8.0 X10^3/uL (3.6-10.0) 03/17/25 05:26 RBC 3.93 X10^6/uL (4.7-6.0) L 03/17/25 05:26 Hgb 11.8 g/dL (13.5-18.0) L 03/17/25 05:26 Hct 35.7 % (42.0-54.0) L 03/17/25 05:26 MCV 90.9 fL (80.0-100.0) 03/17/25 05:26 MCH 30.0 pg (27.0-34.0) 03/17/25 05: MCHC 33.0 g/dL (33.0-35.0) 03/17/25 05:26 RDW 17.0 % (11.6-16.5) H 03/17/25 05:26 Plt Count 229 X10^3/uL (150.0-450.0) 03/17/25 05:26 MPV 9.4 fL (7.4-11.0) 03/17/25 05:26 Neut % (Auto) 63.5 % (42.0-75.0) 03/17/25 05:26 Lymph % (Auto) 18.0 % (21.0-51.0) L 03/17/25 05:26 [place] % (Auto) 12.3 % (0.0-13.0) 03/17/25 05:26 Eos % (Auto) 5.5 % (0.9-2.9) H 03/17/25 05:26 Baso % (Auto) 0.7 % (0.2-1.0) 03/17/25 05:26 Neut # (Auto) 5.0 x10^3/uL (2.2-4.8) H 03/17/25 05:26 Lymph # (Auto) 1.4 X10^3/uL (1.3-2.9) 03/17/25 05:26 [place] # (Auto) 1.0 x10^3/uL (0.3-0.8) H 03/17/25 05:26 Eos # (Auto) 0.4 x10^3/uL (0.0-0.2) H 03/17/25 05:26 Baso # (Auto) 0.1 X10^3/uL (0.0-0.1) 03/17/25 05:26 Absolute Nucleated RBC 0.1 /100WBC 03/17/25 05:26 Sodium 136 mmol/L (136-145) 03/17/25 06:26 Corrected Sodium TNP 03/17/25 06:26 Potassium 5.7 mmol/L (3.5-5.1) H 03/17/25 06:26 Chloride 103 mmol/L (98-107) 03/17/25 06:26 Carbon Dioxide 29.0 mmol/L (21-32) 03/17/25 06:26 BUN 27 mg/dL (7-18) H 03/17/25 06:26 Creatinine 2.00 mg/dL (0.70-1.30) H 03/17/25 06:26 Est GFR (MDRD) Af Amer 41 (>60) L 03/17/25 06:26 Est GFR (MDRD) Non-Af 34 (>60) L 03/17/25 06:26 Glucose 107 mg/dL (65-99) H 03/17/25 06:26 POC Glucose (mg/dL) 104 mg/dL (65-99) H 03/17/25 05:31 Calcium 9.2 mg/dL (8.5-10.1) 03/17/25 06:26 Corrected Calcium 10.5 mg/dL (8.5-10.1) H 03/17/25 06:26 Total Bilirubin 0.60 mg/dL (0.2-1.0) 03/17/25 06:26 AST 102 Units/L (15-37) H 03/17/25 06:26 ALT 67 Units/L (12-78) 03/17/25 06:26 Alkaline Phosphatase 76 Units/L (46-116) 03/17/25 06:26 Total Protein 6.4 g/dL (6.4-8.2) 03/17/25 06:26 Albumin 2.4 g/dL (3.4-5.0) L 03/17/25 06:26 Globulin 4.0 g/dL (2.5-4.5) 03/17/25 06:26 Albumin/Globulin Ratio 0.6 Ratio (1.1-2.1) L 03/17/25 06:26 Carcinoembryonic Ag <2.0 ng/mL 03/14/25 16:22 Fluid pH 8.0 03/14/25 17:35 Fluid Glucose 163 03/14/25 17:35 Cytology Cancelled 03/14/25 19:20 Plan (1) Abdominal ascites: Status: Acute (2) Cirrhosis: Status: Acute (3) Renal insufficiency: Status: Acute
== END 2025-03-17 11:00 ==
LOC: MED/SURG
PROVIDERS: ADMIT Surgery; ATTEND Surgery
DX: Z66 Do not resuscitate; Z79.4 Long term (current) use of insulin; E87.1 Hypo-osmolality and hyponatremia; R06.02 Shortness of breath; R26.89 Other abnormalities of gait and mobility; R53.1 Weakness; F03.90 Unspecified dementia, unspecified severity, without behavioral disturbance, psychotic disturbance, mood disturbance, and anxiety; I13.0 Hypertensive heart and chronic kidney disease with heart failure and stage 1 through stage 4 chronic kidney disease, or unspecified chronic kidney disease; R41.82 Altered mental status, unspecified; Z95.2 Presence of prosthetic heart valve; I25.810 Atherosclerosis of coronary artery bypass graft(s) without angina pectoris; R18.8 Other ascites; Z95.5 Presence of coronary angioplasty implant and graft; I50.9 Heart failure, unspecified; Z86.73 Personal history of transient ischemic attack (TIA), and cerebral infarction without residual deficits; J44.9 Chronic obstructive pulmonary disease, unspecified; N18.9 Chronic kidney disease, unspecified; E87.5 Hyperkalemia; L89.219 Pressure ulcer of right hip, unspecified stage; N28.89 Other specified disorders of kidney and ureter; E11.65 Type 2 diabetes mellitus with hyperglycemia; E86.0 Dehydration; Z74.09 Other reduced mobility; K74.69 Other cirrhosis of liver

== ENCOUNTER 2025-04-18 11:17 | Observation (INO) ==
[2025-04-18 14:13] VITALS: BMI 26.3
[2025-04-18] MEDS ORDERED: ULTRAM PO PRN (14:40)
[2025-04-18 14:45] LABS: MEAN PLATELET VOLUME 8.9 fL (7.4-11.0); RED CELL DISTRIBUTION WIDTH 15.2 % (11.6-16.5)
[2025-04-18 14:46] LABS: INR 1.11 (0.8-1.3)
[2025-04-18 14:51] LABS: COR CA(FOR HYPOALB) 10.5 mg/dL (8.5-10.1); COR NA(FOR HYPERGLY) 139.0 mmol/L (136-145); CREATININE 2.55 mg/dL (0.70-1.30); eGFR NON BLACK RACES 26.0 (>60)
[2025-04-18] MEDS: D5 1/2 NS 1,000 ML 1,000 ML IV SCH (15:11)
[2025-04-18] MEDS: LASIX PO SCH (15:11)
[2025-04-18] MEDS ORDERED: ALDACTONE TAB 25 MG PO SCH (21:00)
[2025-04-18] MEDS: FLOMAX PO SCH (21:37)
[2025-04-18] MEDS: LIPITOR TAB 40 MG PO SCH (21:38)
[2025-04-18] MEDS: LOPRESSOR TAB 25 MG PO SCH (21:38)
[2025-04-18] MEDS: NEURONTIN CAP 300 MG PO SCH (21:38)
[2025-04-18] MEDS: NovoLIN R (or HumuLIN R) SUBCUT PRN (21:39)
[2025-04-19 04:50] LABS: MEAN PLATELET VOLUME 9.0 fL (7.4-11.0); RED CELL DISTRIBUTION WIDTH 15.0 % (11.6-16.5)
[2025-04-19 04:57] LABS: COR CA(FOR HYPOALB) 10.1 mg/dL (8.5-10.1); CREATININE 2.42 mg/dL (0.70-1.30); eGFR NON BLACK RACES 27 (>60)
[2025-04-19 07:58] VITALS: BP 127/67; PULSE 66; RESP 20; TEMP 98.3; O2SAT 97
[2025-04-19] MEDS: ASPIRIN EC 81 MG PO SCH (08:47)
[2025-04-19] MEDS: TRICOR TAB 48 MG PO SCH (08:47)
[2025-04-19] MEDS: ALBUMIN HUMAN 25%- 100 ML 100 ML IV SCH (08:48)
[2025-04-19] MEDS ORDERED: PHARMACY CONSULT LTC MEDICATIONS XX SCH (09:00)
[2025-04-19] MEDS ORDERED: PHARMACY CONSULT XX SCH (09:00)
[2025-04-19] MEDS: LOVENOX INJ 30 MG SYR SC SCH (09:28)
[2025-04-19] MEDS: LOKELMA POWDER PO SCH (09:35)
--- NOTE | 2025-04-19 10:04 | DR.CONSULT ---
CONSULT Consultation for Day of: Date: 04/19/25 Chief Complaint Chief Complaint: abdominal pain Allergies Allergies Allergy/AdvReac Type Severity Reaction Status Date / Time levofloxacin (From Levaquin) Allergy Verified 03/14/25 15:43 Penicillins Allergy Verified 03/14/25 15:43 History of Present Illness History of Present Illness: Patient is a 80y/o male with a PMH of CVA, CAD, CHF, COPD, ascites, cirrhosis, hypertension and CKD [facility] worsening abdominal distention. Patient has a history of recurrent admissions for tense ascites requiring paracentesis. He was admitted by Dr. Sam for paracentesis. He underwent procedure yesterday and shortly after he pulled out his IV and paracentesis drain. He does have IV access now. He is oriented to himself. Medical was consulted. Labs/imaging reviewed: - Hemoglobin 10.8 WBC 11.4 platelet 273 potassium 4.4 creatinine 2.42 - Fluid studies pending Plan: Order ammonia, UA. Follow pending fluid studies. Stop Lokelma. Continue other home medications. Replace electrolytes as per protocol. Follow surgery recommendations. Monitor a.m. labs and imaging. Past Medical History Past Medical History: Anemia, CHF, COPD, CVA, Dementia, Diabetes, Gout, Hypertension, [place], PUD and Renal Disease Past Surgical History Surgical History: Angioplasty/Stents, CABG/Valve Surgery and Ortho Surgery Family History Family Medical History: Diabetes Mellitus, Cancer, [place] and Hypertension Social History Does any household member use tobacco: No Medications Home Medications: levofloxacin (From Levaquin) Allergy (Verified 03/14/25 15:43) Penicillins Allergy (Verified 03/14/25 15:43) Review of Systems Constitutional: No Symptoms Reported Eyes: No Symptoms Reported ENT: No Symptoms Reported Respiratory: No Symptoms Reported Cardiovascular: No Symptoms Reported Gastrointestinal: Abdominal Pain Genitourinary: No Symptoms Reported Musculoskeletal: No Symptoms Reported Skin: No Symptoms Reported Neurological: No Symptoms Reported Physical Exam Vital Signs: Vital Signs Temperature 98.3 F Temperature 98.4 F Pulse Rate [Radial] 66 Pulse Rate [Radial] 70 Respiratory Rate 20 Respiratory Rate 18 Blood Pressure [Right Arm] 127/67 Blood Pressure [Right Arm] 108/64 O2 Sat by Pulse Oximetry 97 O2 Sat by Pulse Oximetry 99 Oriented: Person and Place Respiratory: Diminished Throughout Cardiovascular: Normal Auscultation: Bowel Sounds: Normal Palpation: Normal Tenderness: Normal (dressing noted) Musculoskeletal: Normal Psychiatric: Normal Mood Description: Calm Affect: Normal Speech Pattern: Clear and Delayed Plan (1) Abdominal ascites: Status: Acute Qualifiers: Qualified Code(s): K70.31 - Alcoholic cirrhosis of liver with ascites (2) Cirrhosis: Status: Chronic (3) Mild congestive heart failure: Status: Chronic (4) Anemia: Status: Chronic Qualifiers: Anemia type: unspecified type Qualified Code(s): D64.9 - Anemia, unspecified (5) Hypertension: Status: Chronic Qualifiers: Hypertension type: primary hypertension Qualified Code(s): I10 - Essential (primary) hypertension (6) CKD (chronic kidney disease): Status: Chronic Qualifiers: Chronic kidney disease stage: unspecified stage Qualified Code(s): N18.9 - Chronic kidney disease, unspecified
== END 2025-04-19 11:20 | disposition home or self-care (01) ==
LOC: MED/SURG
PROVIDERS: ADMIT Surgery; ATTEND Surgery
DX: K70.31 Alcoholic cirrhosis of liver with ascites; R10.84 Generalized abdominal pain; Z86.73 Personal history of transient ischemic attack (TIA), and cerebral infarction without residual deficits; N18.9 Chronic kidney disease, unspecified; Z95.5 Presence of coronary angioplasty implant and graft; R74.01 Elevation of levels of liver transaminase levels; Z95.2 Presence of prosthetic heart valve; Z66 Do not resuscitate; E11.65 Type 2 diabetes mellitus with hyperglycemia; R06.02 Shortness of breath; I50.9 Heart failure, unspecified; I25.810 Atherosclerosis of coronary artery bypass graft(s) without angina pectoris; J44.9 Chronic obstructive pulmonary disease, unspecified; Z79.4 Long term (current) use of insulin; I13.0 Hypertensive heart and chronic kidney disease with heart failure and stage 1 through stage 4 chronic kidney disease, or unspecified chronic kidney disease

== ENCOUNTER 2025-05-08 12:26 | Observation (INO) ==
[2025-05-08] MEDS ORDERED: NovoLIN R (or HumuLIN R) SUBCUT PRN (14:41)
[2025-05-08] MEDS ORDERED: PHARMACY CONSULT XX SCH (15:00)
[2025-05-08 15:04] LABS: MEAN PLATELET VOLUME 8.7 fL (7.4-11.0); RED CELL DISTRIBUTION WIDTH 14.7 % (11.6-16.5)
[2025-05-08 15:09] LABS: INR 1.04 (0.8-1.3)
[2025-05-08 15:15] LABS: COR CA(FOR HYPOALB) 10.3 mg/dL (8.5-10.1); COR NA(FOR HYPERGLY) 140.0 mmol/L (136-145); CREATININE 2.4 mg/dL (0.70-1.30); eGFR NON BLACK RACES 28.0 (>60)
[2025-05-08 16:39] VITALS: BMI 25.9
[2025-05-08] MEDS ORDERED: ULTRAM PO PRN (18:44)
[2025-05-08] MEDS: SNACK - Diabetic Appropriate PO SCH (21:10)
[2025-05-08] MEDS: LOPRESSOR TAB 25 MG PO SCH (21:31)
[2025-05-08] MEDS: LIPITOR TAB 40 MG PO SCH (21:31)
[2025-05-08] MEDS: NEURONTIN CAP 300 MG PO SCH (21:31)
[2025-05-08] MEDS: ALDACTONE TAB 25 MG PO SCH (21:31)
[2025-05-08] MEDS: FLOMAX PO SCH (21:32)
[2025-05-08 22:24] VITALS: RESP 18
[2025-05-09 05:35] LABS: MEAN PLATELET VOLUME 8.7 fL (7.4-11.0); RED CELL DISTRIBUTION WIDTH 14.5 % (11.6-16.5)
[2025-05-09 05:49] LABS: COR CA(FOR HYPOALB) 10.6 mg/dL (8.5-10.1); CREATININE 2.29 mg/dL (0.70-1.30); eGFR NON BLACK RACES 29 (>60)
[2025-05-09 08:36] VITALS: BP 141/67; PULSE 75; TEMP 98.6; O2SAT 98
[2025-05-09] MEDS ORDERED: [UNRECOGNIZED DRUG - OTHER] TOP SCH (09:00)
[2025-05-09] MEDS: ASPIRIN 81 MG CHEWTAB PO SCH (09:28)
[2025-05-09] MEDS: TRICOR TAB 48 MG PO SCH (09:28)
[2025-05-09] MEDS: LOKELMA POWDER PO SCH (09:28)
[2025-05-10] MEDS ORDERED: LASIX PO SCH (08:00)
--- NOTE | 2025-05-12 13:01 | DR.SSS ---
SHORT STAY SUMMARY Admission Date Date of Admission: 05/08/25 Discharge Date Discharge Date: 05/09/25 Admission Diagnoses Admission Diagnoses: Ascites Cirrhosis Abdominal pain Discharge Diagnoses Discharge Diagnoses: Ascites Alcoholic cirrhosis Liver failure Hypertension Hyperlipidemia Type 2 diabetes Chief Complaint Chief Complaint: Abdominal pain and distention History of Present Illness History of Present Illness: Patient was admitted from [facility] due to worsening abdominal pain. Patient has a history of recurrent admissions and ER visits for paracentesis. He was admitted for further management. Past Medical History Past Medical History: Anemia, CHF, COPD, CVA, Dementia, Diabetes, Gout, Hypertension, [place], PUD and Renal Disease Past Surgical History Surgical History: Angioplasty/Stents, CABG/Valve Surgery and Ortho Surgery Allergies Allergies Allergy/AdvReac Type Severity Reaction Status Date / Time levofloxacin (From Levaquin) Allergy Verified 03/14/25 15:43 Penicillins Allergy Verified 03/14/25 15:43 Medications Home Medications: levofloxacin (From Levaquin) Allergy (Verified 03/14/25 15:43) Penicillins Allergy (Verified 03/14/25 15:43) CONTINUE taking the following medications aspirin 81 mg chewable tablet 81 mg PO QDAY 05/08/25 [History] Family History Family Medical History: Diabetes Mellitus, Cancer, [place] and Hypertension Social History Does any household member use tobacco: No Review of Systems Constitutional: No Symptoms Reported Eyes: No Symptoms Reported ENT: No Symptoms Reported Respiratory: No Symptoms Reported Cardiovascular: No Symptoms Reported Gastrointestinal: Abdominal Pain Genitourinary: No Symptoms Reported Musculoskeletal: No Symptoms Reported Skin: No Symptoms Reported Neurological: No Symptoms Reported Physical Exam Vital Signs: Last Vital Signs Temp 98.6 F 05/09/25 08:00 Pulse 75 05/09/25 08:00 Resp 18 05/09/25 08:00 BP 141/67 05/09/25 08:00 Pulse Ox 98 05/09/25 08:00 O2 Del Method Room Air 05/09/25 08:00 Oriented: Normal Respiratory: Diminished Throughout Cardiovascular: Normal Auscultation: Bowel Sounds: Normal Palpation: Normal Tenderness: Normal Musculoskeletal: Normal Psychiatric: Normal Mood Description: Calm Affect: Normal Speech Pattern: Clear and Appropriate Labs Labs: Laboratory Last Values WBC 9.0 X10^3/uL (3.6-10.0) 05/09/25 05:17 RBC 3.68 X10^6/uL (4.7-6.0) L 05/09/25 05:17 Hgb 11.4 g/dL (13.5-18.0) L 05/09/25 05:17 Hct 33.4 % (42.0-54.0) L 05/09/25 05:17 MCV 90.8 fL (80.0-100.0) 05/09/25 05:17 MCH 30.9 pg (27.0-34.0) 05/09/25 05:17 MCHC 34.0 g/dL (33.0-35.0) 05/09/25 05:17 RDW 14.5 % (11.6-16.5) 05/09/25 05:17 Plt Count 241 X10^3/uL (150.0-450.0) 05/09/25 05:17 MPV 8.7 fL (7.4-11.0) 05/09/25 05:17 Neut % (Auto) 59.1 % (42.0-75.0) 05/09/25 05:17 Lymph % (Auto) 19.2 % (21.0-51.0) L 05/09/25 05:17 [place] % (Auto) 12.3 % (0.0-13.0) 05/09/25 05:17 Eos % (Auto) 8.3 % (0.9-2.9) H 05/09/25 05:17 Baso % (Auto) 1.1 % (0.2-1.0) H 05/09/25 05:17 Neut # (Auto) 5.3 x10^3/uL (2.2-4.8) H 05/09/25 05:17 Lymph # (Auto) 1.7 X10^3/uL (1.3-2.9) 05/09/25 05:17 [place] # (Auto) 1.1 x10^3/uL (0.3-0.8) H 05/09/25 05:17 Eos # (Auto) 0.8 x10^3/uL (0.0-0.2) H 05/09/25 05:17 Baso # (Auto) 0.1 X10^3/uL (0.0-0.1) 05/09/25 05:17 Absolute Nucleated RBC 0.1 /100WBC 05/09/25 05:17 PT 13.8 SECONDS (11.8-14.3) 05/08/25 14:53 INR Target Range - 05/08/25 14:53 INR 1.04 (0.8-1.3) 05/08/25 14:53 APTT 27.9 SECONDS (22.9-36.5) 05/08/25 14:53 PTT Comment - 05/08/25 14:53 Sodium 139 mmol/L (136-145) 05/09/25 05:17 Corrected Sodium TNP 05/09/25 05:17 Potassium 4.7 mmol/L (3.5-5.1) 05/09/25 05:17 Chloride 107 mmol/L (98-107) 05/09/25 05:17 Carbon Dioxide 29.2 mmol/L (21-32) 05/09/25 05:17 BUN 30 mg/dL (7-18) H 05/09/25 05:17 Creatinine 2.29 mg/dL (0.70-1.30) H 05/09/25 05:17 Est GFR (MDRD) Af Amer 35 (>60) L 05/09/25 05:17 Est GFR (MDRD) Non-Af 29 (>60) L 05/09/25 05:17 Glucose 109 mg/dL (65-99) H 05/09/25 05:17 POC Glucose (mg/dL) 97 mg/dL (65-99) 05/09/25 05:11 Calcium 8.8 mg/dL (8.5-10.1) 05/09/25 05:17 Corrected Calcium 10.6 mg/dL (8.5-10.1) H 05/09/25 05:17 Total Bilirubin 0.50 mg/dL (0.2-1.0) 05/09/25 05:17 AST 64 Units/L (15-37) H 05/09/25 05:17 ALT 41 Units/L (12-78) 05/09/25 05:17 Alkaline Phosphatase 76 Units/L (46-116) 05/09/25 05:17 Total Protein 6.3 g/dL (6.4-8.2) L 05/09/25 05:17 Albumin 1.8 g/dL (3.4-5.0) L 05/09/25 05:17 Globulin 4.5 g/dL (2.5-4.5) 05/09/25 05:17 Albumin/Globulin Ratio 0.4 Ratio (1.1-2.1) L 05/09/25 05:17 Hospital Course Hospital Course: Dr. Benavides was consulted and patient underwent paracentesis. He was doing well and feeling better the next day. His labs were monitored and electrolytes replaced as needed. He was stable to be discharged back to the skilled nursing. Discharge Medications Discharge Medications: Home Medication List aspirin 81 mg chewable tablet 81 mg PO QDAY 05/08/25 [History] Prescriptions: Discharge Disposition Discharge Disposition: [facility] Discharge Plan Discharge Plan Patient Disposition: HOME, SELF-CARE Condition: Stable Health Concerns: Post Hospitalization: new medications and changes needed to prevent readmission or further decline. Pt educated and given instructions on all concerns. Care Plan Goals: POST OPERATIVE INSTRUCTIONS: (1) A RESPONSIBLE ADULT SHOULD REMAIN WITH YOU TODAY, YOU SHOULD BE ASSISTED TO THE BATHROOM FOR 6-8 HOURS. REST QUIETLY THE REMAINDER OF THE DAY. (2) DEEP BREATHING AND COUGHING EXERCISES FOR THE NEXT 6-8 HOURS. (3)SMOKE ONLY IF SOMEONE IS WITH YOU FOR THE NEXT 12 HOURS. (4) DIET TOLERATED (5) DO NOT DRIVE YOUR AUTOMOBILE OR OPERATE MACHINERY FOR 12-18 HOURS AFTER RECEIVING A GENERAL ANESTHETIC OR WHILE TAKING NARCOTIC PAIN MEDICATION. (6) SOME ANESTHETIC AGENTS AND MEDICATION TAKEN FOR PAIN MAY CAUSE NAUSEA. IF NAUSEA PERSISTS FOR SEVERAL HOURS AT HOME, CALL YOUR DOCTOR. (7) OBSERVE AFFECTED AREA FOR CIRCULATION, CHANGE OF COLOR, NUMBNESS OR TINGLING, COLDNESS, INCREASED PAIN. (8) OBSERVE OPERATIVE AREA FOR SIGNS OF INFECTION: REDNESS, SWELLING, FOUL ODOR, DRAINAGE, AND NOTIFY FOR ANY CONCERNS OR FEVER OVER 101.0. (9) KEEP OPERATIVE AREA CLEAN AND DRY. DO NOT REMOVE DRESSING UNLESS INSTRUCTED TO DO SO BY YOUR DOCTOR. (10) RESUME ALL PREVIOUS MEDICATIONS PRESCRIBED BY YOUR DOCTOR. (11) TAKE PAIN MEDICATIONS PRESCRIBED. (12) NO LIFTING OVER 10LBS. FOLLOW UP WITH DOCTOR ON . Plan of Treatment: Continue with present treatment and follow up plan. Pt is to keep follow up ap pointment as instructed and take medications as ordered. Prescription drug monitoring program results: PDMP reviewed and no concerns identified Prescriptions: Continued fenofibrate nanocrystallized 145 mg tablet 48 mg PO QDAY Novolin R Regular U100 Insulin 100 unit/mL Solution See Rx Instructions .ROUTE .COMPLEX Rx Instructions: sliding scale spironolactone [Aldactone] 50 mg tablet 50 mg PO BID Qty: 30 0RF Cetaphil Moisturizing Cream 1 applic TOPICAL DAILY aspirin 81 mg Tablet,Chewable 81 mg PO QDAY atorvastatin 40 mg tablet 40 mg PO HS tramadol 50 mg tablet 50 mg PO Q6H PRN tamsulosin 0.4 mg capsule 0.4 mg PO HS gabapentin 300 mg capsule 300 mg PO BID omeprazole 20 mg capsule,delayed release(DR/EC) 20 mg PO QDAY metoprolol tartrate 25 mg tablet 25 mg PO TID furosemide 20 mg Tablet 20 mg PO Q48H Qty: 30 0RF Lokelma 10 gram Powder In Packet 10 g PO QDAY Qty: 30 0RF Orders to Discharge Patient Discharge Orders: Discharge (Routine); Ordered 05/09/25 Ordered By: Jaclyn Goodman Follow ups/Referrals Follow ups/Referrals: Rd Green [Primary Care Provider, MEDICAL] - 05/15/25 10:10 am LEYLA JOSHUA [STAFF PHYSICIAN, MEDICAL] - 05/18/25 11:30 am Instructions Instructions: Fatigue, Weakness: What to Know, [id number] Stand Alone Forms: Excuse From Work or School, Find Help Web Site, Post Hospital Follow Up Care Print Language: AZERI
== END 2025-05-09 10:20 | disposition home or self-care (01) ==
LOC: MED/SURG
PROVIDERS: ADMIT Internal Medicine; ATTEND Internal Medicine
DX: R94.4 Abnormal results of kidney function studies; Z66 Do not resuscitate; Z79.4 Long term (current) use of insulin; D72.828 Other elevated white blood cell count; R18.8 Other ascites; K74.69 Other cirrhosis of liver; E11.65 Type 2 diabetes mellitus with hyperglycemia; R26.89 Other abnormalities of gait and mobility